=== PATIENT | female | born 2000 | race Asian ===

== ENCOUNTER 2023-10-25 09:16 | Outpatient (CLI) | payer OTHER, SELFPAY ==
[2023-10-25 12:12] LABS: GC DNA Amplified* NOT DETECTED (No Detected)
[2023-10-25 12:30] LABS: Chlamydia DNA Amplified* DETECTED (No Detected)
== END 2023-10-25 09:17 | disposition home or self-care (01) ==
LOC: NFLDUCREF 09:16
PROVIDERS: Visit Provider Nurse Practitioner
DX: A56.01 Chlamydial cystitis and urethritis; Z11.3 Encounter for screening for infections with a predominantly sexual mode of transmission
CPT/HCPCS: 87086; 87491; 87591

== ENCOUNTER 2024-02-01 08:15 | Outpatient (CLI) | payer OTHER, SELFPAY | END 2024-02-01 08:16 | disposition home or self-care (01) | PROVIDERS: PCP Registered Nurse; Visit Provider Registered Nurse | DX: Z00.00 Encounter for general adult medical examination without abnormal findings (principal); Z02.0 Encounter for examination for admission to educational institution | CPT/HCPCS: 86480; 86706; 86735; 86762; 86765; 86803; 87340 ==